=== PATIENT | male | born 2000 | race Caucasian/White ===

== ENCOUNTER 2022-10-19 19:12 | Emergency (ER) | payer OTHER ==
[~2022-10-19] VITALS: Ht 180.3 cm; Wt 86.3 kg
[2022-10-19 19:13] VITALS: BP 147/73
[2022-10-19] MEDS ORDERED: MUPIROCIN 2% OINT 22 GM TUBE TOP ONE (20:10)
[2022-10-19] MEDS ORDERED: CLOT1CRE56 TOP (20:13)
[2022-10-19] MEDS ORDERED: MUPI30CR TOP (20:13)
== END 2022-10-19 20:29 | disposition home or self-care (01) ==
LOC: M ED 19:12
DX: L29.9 Pruritus, unspecified (principal); L85.3 Xerosis cutis; F17.290 Nicotine dependence, other tobacco product, uncomplicated

== ENCOUNTER 2022-11-29 13:04 | Emergency (ER) | payer OTHER ==
[~2022-11-29] VITALS: Ht 182.9 cm; Wt 86.3 kg
[~2022-11-29 13:04] MED LIST: CLOT1CRE56 TOP; MUPI30CR TOP
[2022-11-29 16:54] VITALS: BP 129/79
== END 2022-11-29 18:18 | disposition home or self-care (01) ==
LOC: M ED 13:04
DX: S89.91XA Unspecified injury of right lower leg, initial encounter (principal); V00.328A Other snow-ski accident, initial encounter; Y92.89 Other specified places as the place of occurrence of the external cause

== ENCOUNTER 2022-12-26 21:50 | Emergency (ER) | payer OTHER ==
[~2022-12-26] VITALS: Ht 180.3 cm; Wt 84.1 kg
[2022-12-26 21:51] VITALS: BP 127/74
== END 2022-12-27 02:22 | disposition left against medical advice (07) ==
LOC: M ED 21:50
DX: Z53.21 Procedure and treatment not carried out due to patient leaving prior to being seen by health care provider (principal)

== ENCOUNTER 2023-07-12 18:35 | Emergency (ER) | payer OTHER ==
[~2023-07-12] VITALS: Ht 180.3 cm; Wt 84.4 kg
[2023-07-12 18:36] VITALS: BP 140/82; TEMP 98.5; O2SAT 99
== END 2023-07-12 23:00 | disposition home or self-care (01) ==
LOC: M ED 18:35
DX: D23.4 Other benign neoplasm of skin of scalp and neck (principal); M54.9 Dorsalgia, unspecified; F17.290 Nicotine dependence, other tobacco product, uncomplicated

== ENCOUNTER 2023-12-07 21:43 | Emergency (ER) | payer OTHER ==
[~2023-12-07] VITALS: Ht 180.3 cm; Wt 83.4 kg
[2023-12-07] MEDS ORDERED: BUPR300T92 (22:10)
[2023-12-08] MEDS ORDERED: IBUP-1022 PO (02:05)
[2023-12-08 02:20] VITALS: BP 125/68; TEMP 98; O2SAT 100
== END 2023-12-08 02:25 | disposition home or self-care (01) ==
LOC: M ED 21:43
DX: M25.521 Pain in right elbow (principal); F17.210 Nicotine dependence, cigarettes, uncomplicated; F10.10 Alcohol abuse, uncomplicated; Z79.1 Long term (current) use of non-steroidal anti-inflammatories (NSAID); Z79.899 Other long term (current) drug therapy